=== PATIENT | male | born 2000 ===

== ENCOUNTER 2023-05-15 19:03 | Outpatient (REF) | payer MEDICAID, SELFPAY ==
[2023-05-15 20:07] LABS: Influenza A PCR NEGATIVE (Negative); Influenza B PCR NEGATIVE (Negative); Resp Syncy Virus RNA Qual PCR NEGATIVE (Negative); SARS COV2 PCR INHOUSE NEGATIVE (Negative)
== END 2023-05-15 19:04 | disposition home or self-care (01) ==
LOC: HO.HHCLNP 19:03
PROVIDERS: Visit Provider Emergency Medicine
DX: Z20.822 Contact with and (suspected) exposure to COVID-19 (principal); J30.2 Other seasonal allergic rhinitis
CPT/HCPCS: 0241U

== ENCOUNTER 2024-01-07 16:22 | Outpatient (REF) | payer MEDICAID, SELFPAY ==
[2024-01-07 17:35] LABS: MANUAL DIFF FLAG NO
[2024-01-07 17:42] LABS: Basophils Percent Auto 0.5 % (0-2); Eosinophils Absolute Auto 0.3 X10*3/uL (0.0-0.4); Eosinophils Percent Auto 3.6 % (0-4); Hematocrit 40.9 % (42.0-52.0); Hemoglobin 14.4 g/dl (14.0-18.0); Imm Gran Abs Auto 0.03 X10*3/uL (0.00-0.03); Imm Gran Pct Auto 0.4 % (0.0-0.4); Lymphocytes Absolute Auto 2.4 X10*3/uL (1.2-4.9); Lymphocytes Percent Auto 28.9 % (20-40); Mean Corpuscular HGB Conc 35.2 g/dl (31.0-36.0); Mean Corpuscular Hemoglobin 31.2 pg (27.0-33.0); Mean Corpuscular Volume 88.7 fL (80.0-98.0); Mean Platelet Volume 9.2 fL (9.4-12.4); Monocytes Absolute Auto 0.6 X10*3/uL (0.1-1.2); Monocytes Percent Auto 7.4 % (2-11); Neutrophils Absolute Auto 4.9 x10*3/uL (2.0-8.3); Neutrophils Percent Auto 59.2 % (45-73); Platelet Count 322 X10*3/uL (160-400); Red Blood Count 4.61 X10*6/uL (4.60-5.80); Red Cell Distribution Width 11.8 % (11.0-16.0); White Blood Count 8.3 X10*3/uL (4.8-10.8)
[2024-01-07 18:35] LABS: Alanine Aminotransferase 76 U/L (0-40); Albumin Level 4.8 g/dL (3.5-5.0); Alkaline Phosphatase 51 U/L (39-117); Anion Gap 14 (12-20); Aspartate Amino Transferase 44 U/L (5-37); Bilirubin Total 0.4 mg/dL (0.0-1.0); Blood Urea Nitrogen 9 mg/dL (9-16); Calcium 9.9 mg/dL (8.4-10.2); Carbon Dioxide 25 mmol/L (22-29); Chloride 106 mmol/L (96-108); Cholesterol 123 mg/dL (<200); Estimated Glomerular Filt Rate > 60; Glucose Random 86 mg/dL (60-115); HDL Cholesterol 34 mg/dL (>40); LDL Cholesterol Calculated 54 mg/dL (<100); Potassium 3.7 mmol/L (3.3-5.1); Sodium 141 mmol/L (135-145); Total Protein 7.8 g/dL (6.5-8.0); Triglycerides 176 mg/dL (<150)
[2024-01-08 09:48] LABS: HIV AB/AG Nonreactive (Nonreactive); HIV Num 1 0.03 S/CO (0.00-0.99); ~HepC Num1 0.27 S/CO (0.00-0.79); ~Hepatitis C Antibody Nonreactive (Nonreactive)
[2024-01-08 12:23] LABS: RPR Rapid Plasma Reagin NON-REACTIVE (NON-REACTIVE)
== END 2024-01-07 16:23 | disposition home or self-care (01) ==
LOC: HO.HHCL 16:22
PROVIDERS: Visit Provider General Practice
DX: E66.9 Obesity, unspecified (principal); A64 Unspecified sexually transmitted disease; Z68.38 Body mass index [BMI] 38.0-38.9, adult
CPT/HCPCS: 36415; 80053; 80061; 85025; 86592; 86803; 87389

== ENCOUNTER 2024-05-12 03:45 | Emergency (ER) | payer MEDICAID, SELFPAY ==
[2024-05-12 03:50] VITALS: BP 122/55; PULSE 70; RESP 22; TEMP 36.6; O2SAT 93; BMI 39.6
[2024-05-12] MEDS: Albuterol Sulfate 7.5 MG, Albuterol/Iprat 2.5/0.5MG 3 ML 3 ML INHALE (04:18)
[2024-05-12] MEDS: dexAMETHasone sod phosphate 10 MG/ML VIAL IVPUSH (04:22)
[2024-05-12] MEDS: 0.9 % Sodium Chloride 1,000 ML 999 ML IV (04:23)
[2024-05-12] MEDS: Magnesium Sulfate/H2O 2 GM/50 ML PIGGYBACK IV (04:32)
--- NOTE | 2024-05-12 04:39 | PC.NURSE ---
Magnesium dose and pump settings confirmed with FLAVIA Lawler.
[2024-05-12 06:20] VITALS: BP 139/63; PULSE 88; RESP 16; TEMP 37.1; O2SAT 94
[2024-05-12 06:31] VITALS: BP 139/63; PULSE 88; RESP 16; TEMP 37.1; O2SAT 94
--- NOTE | 2024-05-14 02:33 | ED.ASTHMA ---
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 no fever no chills no nasal congestion tested negative for COVID at home Related Data Previous Rx's ?Medication ?Instructions ?Recorded albuterol sulfate 90 mcg/actuation 2 puff inhalation Q6H PRN 05/12/24 aerosol inhaler shortness of breath or wheezing #8.5 grams prednisone 20 mg tablet 40 mg (2 x 20 mg) PO DAILY #10 tabs 05/12/24 Allergies Allergy/AdvReac Type Severity Reaction Status Date / Time No Known Allergies Allergy Unverified 05/12/24 03:51 Review of Systems Review of Systems: Yes all other systems are reviewed and are negative [facility] Social History Social History Use of substances other than those prescribed or required for medical reasons: No Advance Directives: No Advance Directives Information Provided: Yes Physical Exam Vital Signs: Vital Signs: Last Vital Signs Temp 98.8 F 05/12/24 06:31 Pulse 88 05/12/24 06:31 Resp 16 05/12/24 06:31 BP 139/63 05/12/24 06:31 Pulse Ox 94 05/12/24 06:31 O2 Del Method Room Air 05/12/24 06:31 BMI result Body Mass Index 39.6 Appearance: Alert. Oriented X3. No acute distress. Eyes: PERRLA, No Nystagmus ENT: Pharynx normal. Oral Mucosa moist Neck: Normal inspection. Neck supple. CVS: Normal heart rate and rhythm. Pulses normal. Respiratory: No respiratory distress. Equal air entry bilateral, bilateral wheezing Abdomen: Soft and nontender. Bowel sounds are present, no mass palpable, no CVA tenderness Skin: Skin warm and dry. Normal skin color. Normal skin turgor. Extremities: No lower extremity edema. No calf tenderness Neuro: Oriented X 3. Medications Administered Discontinued Medications Generic Name Dose Route Start Last Admin Trade Name Freq PRN Reason Stop Dose Admin Albuterol Sulfate 7.5 mg/ 0 mg 05/12/24 04:04 05/12/24 04:18 Albuterol/Ipratropium 3 ml INHALE 05/12/24 04:05 1 each ONCE ONE Administration Dexamethasone Sodium Phosphate 10 mg 05/12/24 04:05 05/12/24 04:22 Dexamethasone Sod Phosphate 10 Mg/Ml Vial IVPUSH 05/12/24 04:06 10 mg ONCE ONE Administration Magnesium Sulfate 2 gm in 50 mls @ 150 mls/hr 05/12/24 04:05 05/12/24 04:54 Magnesium Sulfate/H2o IV 05/12/24 04:24 Infused ONCE ONE Infusion Sodium Chloride 1,000 mls @ 999 mls/hr 05/12/24 04:06 05/12/24 04:23 Ns IV 05/12/24 05:06 999 mls/hr .Q1H1M ONE Administration Medical Decision Making Medical Decision Making [facility] Narrative: Patient with acute asthma improved after saturating 94% at room air discharge patient home on steroids and inhaler Differential Diagnosis Differential Diagnoses: The differential diagnosis associated with the presentation includes Asthma/bronchitis/pneumonia Discharge Plan Discharge Clinical Impression: Asthma with acute exacerbation Patient Disposition: Home, Self-Care Instructions: Asthma (ED) Additional Instructions: Use inhaler and prednisone as prescribed Stay away from cat as you might be allergic to it Prescriptions: New prednisone 20 mg tablet 40 mg PO DAILY Qty: 10 0RF albuterol sulfate 90 mcg/actuation HFA aerosol inhaler 2 puff inhalation Q6H PRN (Reason: shortness of breath or wheezing) Qty: 8.5 0RF Interventions: ED Discharge Assessment Last Done: 05/12/24 06:31 Discharge Date/Time: 05/12/24 06:36 Print Language: Cape Verdean
== END 2024-05-12 06:36 | disposition home or self-care (01) ==
PROVIDERS: Emergency Provider Internal Medicine
DX: J45.901 Unspecified asthma with (acute) exacerbation (principal); R05.9 Cough, unspecified
CPT/HCPCS: 96365; 99284; J1100; J3475

== ENCOUNTER 2024-11-24 10:09 | Emergency (ER) | payer MEDICAID, SELFPAY ==
--- NOTE | ~2024-11-24 | US_ITS ---
EXAMINATION: US LOWER EXTREMITY VEINS LIMITED FOLLOW UP RIGHT HISTORY: Right groin/ant prox thigh redness/mass. r/o abscess, r/o DVT COMPARISON: There are no prior studies for comparison. TECHNIQUE: Duplex and color Doppler sonographic examination of the deep venous system of the right lower extremity was performed. FINDINGS: The common femoral, superficial femoral, and popliteal veins are patent demonstrating normal compressibility, spontaneous flow, and augmentation. There is a normal color and spectral Doppler waveform appearance of the visualized deep venous system above the knee. The posterior tibial and peroneal veins are patent. Imaging of the right groin demonstrates a 1.4 x 0.9 x 1.5 cm heterogeneous fluid collection demonstrating increased vascularity, suggestive of an abscess. US/US venous duplex LE RT IMPRESSION: 1. Probable 1.4 x 0.9 x 1.5 cm abscess in the right groin. 2. No evidence of acute DVT in the right lower extremity. Electronically signed by: Lloyd Hanson MD 11/24/2024 03:37 PM EDT
[2024-11-24 10:32] VITALS: BP 128/40; PULSE 69; RESP 18; TEMP 36.7; O2SAT 96; BMI 37.1
[2024-11-24 11:09] LABS: MANUAL DIFF FLAG NO
[2024-11-24 11:10] LABS: Basophils Percent Auto 0.4 % (0-2); Eosinophils Absolute Auto 0.2 X10*3/uL (0.0-0.4); Eosinophils Percent Auto 2.7 % (0-4); Hematocrit 39.5 % (42.0-52.0); Hemoglobin 14.3 g/dl (14.0-18.0); Imm Gran Abs Auto 0.02 X10*3/uL (0.00-0.03); Imm Gran Pct Auto 0.2 % (0.0-0.4); Lymphocytes Absolute Auto 2.2 X10*3/uL (1.2-4.9); Lymphocytes Percent Auto 25.9 % (20-40); Mean Corpuscular HGB Conc 36.2 g/dl (31.0-36.0); Mean Corpuscular Hemoglobin 32.2 pg (27.0-33.0); Mean Platelet Volume 8.8 fL (9.4-12.4); Monocytes Absolute Auto 0.7 X10*3/uL (0.1-1.2); Monocytes Percent Auto 7.7 % (2-11); Neutrophils Absolute Auto 5.3 x10*3/uL (2.0-8.3); Neutrophils Percent Auto 63.1 % (45-73); Platelet Count 288 X10*3/uL (160-400); Red Blood Count 4.44 X10*6/uL (4.60-5.80); Red Cell Distribution Width 11.9 % (11.0-16.0); White Blood Count 8.5 X10*3/uL (4.8-10.8)
[2024-11-24 11:28] LABS: Alanine Aminotransferase 57 U/L (0-40); Albumin Level 4.5 g/dL (3.5-5.0); Alkaline Phosphatase 46 U/L (39-117); Anion Gap 10 (12-20); Aspartate Amino Transferase 33 U/L (5-37); Bilirubin Total 0.8 mg/dL (0.0-1.0); Blood Urea Nitrogen 7 mg/dL (9-16); Calcium 9.3 mg/dL (8.4-10.2); Carbon Dioxide 26 mmol/L (22-29); Chloride 107 mmol/L (96-108); Creatinine Clr Calc Pharmacy 155.8; Estimated Glomerular Filt Rate > 60; Glucose Random 108 mg/dL (60-115); Potassium 3.9 mmol/L (3.3-5.1); Sodium 139 mmol/L (135-145); Total Protein 7.3 g/dL (6.5-8.0)
--- NOTE | 2024-11-24 12:46 | ED.GENADULT ---
HPI - General Adult General Chief complaint: Skin/Abscess/Foreign Body Stated complaint: boil Time Seen by Provider: 11/24/24 15:30 Source: patient and other ( significant other) Mode of arrival: ambulatory Limitations: no limitations History of Present Illness ED Provider: Dr. Brian Ramires HPI narrative: 25-year-old male with no significant past medical history who presents emergency department for evaluation of right upper thigh redness and pain x2 days fever, chills, fatigue. He denied any recent long trips patient states that over the last 24 hours, the redness and pain is gotten worse therefore came to the emergency department for evaluation. Related Data Previous Rx's ?Medication ?Instructions ?Recorded albuterol sulfate 90 mcg/actuation 2 puff inhalation Q6H PRN 05/12/24 aerosol inhaler shortness of breath or wheezing #8.5 grams prednisone 20 mg tablet 40 mg (2 x 20 mg) PO DAILY #10 tabs 05/12/24 acetaminophen 500 mg tablet 1,000 mg (2 x 500 mg) PO Q6H PRN 11/24/24 (Tylenol Extra Strength) fever or pain #20 tabs cephalexin 500 mg capsule 500 mg PO QID 7 days #28 caps 11/24/24 doxycycline hyclate 100 mg tablet 100 mg PO Q12H 7 days #14 tabs 11/24/24 ibuprofen 400 mg tablet 400 mg PO TID PRN fever or pain 11/24/24 #30 tabs nystatin 100,000 unit/gram topical 1 appl topical BID groin 11/24/24 ointment candidiasis 2 weeks #30 grams Allergies Allergy/AdvReac Type Severity Reaction Status Date / Time No Known Allergies Allergy Verified 11/24/24 10:34 Review of Systems Review of Systems: Yes all other systems are reviewed and are negative [facility] Social History Social History Advance Directives: No Advance Directives Information Provided: No Do you have a plan to hurt others: No Plan Physical Exam ED Vital Signs: Vital Signs - 24 hr 11/24/24 10:32 11/24/24 16:53 Temperature 98.1 F 98.5 F Pulse Rate 69 70 Respiratory Rate 18 18 Blood Pressure 128/40 L 130/81 Pulse Oximetry 96 99 Oxygen Delivery Method Room Air Room Air BMI result Body Mass Index 37.1 vital signs were normal exam right groin: There is a 10 x 6 cm of erythema, the erythema is very tender to palpation with induration of the skin. He was also intertriginous erythema on both areas of the groin consistent with candidiasis infection Course Course Course Narrative: RME: 24-year-old male presents to ED for right anterior thigh mass as painful and red for couple of days. Positive for tenderness on palpation with redness and hardened mass. Not fluctuant. Was sent for ultrasound to rule out DVT and abscess. Labs already ordered Medications Administered Discontinued Medications Generic Name Dose Route Start Last Admin Trade Name Freq PRN Reason Stop Dose Admin Cephalexin HCl 500 mg 11/24/24 16:31 11/24/24 16:49 Cephalexin 500 Mg Capsule PO 11/24/24 16:32 500 mg ONCE ONE Administration Doxycycline Monohydrate 100 mg 11/24/24 16:31 11/24/24 16:48 Doxycycline Monohydrate 100 Mg Capsule PO 11/24/24 16:32 100 mg ONCE ONE Administration Ibuprofen 400 mg 11/24/24 16:31 11/24/24 16:48 Ibuprofen 400 Mg Tablet PO 11/24/24 16:32 400 mg ONCE STA Administration Lidocaine HCl 5 ml 11/24/24 15:56 11/24/24 16:49 Lidocaine Hcl 1 % Mpf 5 Ml Vial INFILTRATI 11/24/24 15:57 5 ml ONCE ONE Administration Lidocaine HCl 5 ml 11/24/24 15:56 11/24/24 16:49 Lidocaine Hcl 1 % Mpf 5 Ml Vial INFILTRATI 11/24/24 15:57 5 ml ONCE STA Administration Procedures Procedure Narrative Procedure Narrative: Right groin abscess incision, drainage and packing procedure: I did discuss the incision and drainage procedure the patient and he did give me informed verbal consent to proceed.Using point of care ultrasound, the fluid collection was located and marked with a skin pen. The area was prepped with Betadine , anesthetized with 5 cc of 1% lidocaine. Using an 18 gauge needle and a 10 cc syringe, I was able to find the abscess cavity and aspirate 3 cc of purulent material. This was sent for culture. Then using an 11 blade scalpel, I make an incision over the marked area and no further purulent material was expressed. I did explore the abscess cavity using hemostats to break up any adhesions. The abscess cavity was packed with his gauze. The patient tolerated the procedure well. Medical Decision Making Medical Decision Making [facility] Narrative: 24-year-old male with no significant past medical history presents emergency department for evaluation of 2-3 days of right groin pain with erythema and tenderness. He had no concerning systemic symptoms. Differential diagnosis: Includes but is not limited to Cellulitis, abscess, intertriginous candidiasis Course: 16:50 my independent interpretation patient's laboratory evaluation is as follows: CBC was normal. CMP was unremarkable except for an elevated ALT of 57. The patient had a right lower extremity duplex ultrasound which she had no DVT. Ultrasound of the groin area did reveal a collection of fluid in the groin area consistent with an abscess. Using point of care ultrasound, the fluid collection was located and marked with a skin pen. The area was prepped with Betadine, Anesthetized with 1% lidocaine and.using an 18 gauge needle with a 10 cc syringe, I was able to find the abscess cavity and aspirated 3 cc of purulent material. This was sent for culture. Using a 11 blade scalpel, I make an incision over the marked area and no further purulent material was expressed. I did explore the abscess cavity using hemostats to break up any adhesions. The abscess cavity was packed with his gauze. The patient was prescription and doxycycline 100 mg b.i.d. for 7 days and Keflex 500 mg 4 times a day for 7 days. He was given his 1st dose of these medications in the emergency department . Patient was also prescribed Tylenol and ibuprofen for pain. The patient does have intertriginous candidiasis infection of the groin area and I did discuss this with him. He was prescribed nystatin ointment b.i.d. for 2 weeks. Admission/Observation Consideration of admission/observation: Escalation of care including admission/observation considered ( yes) Lab Data [facility] Lab Attestation statement: I reviewed the patient's lab results. 11/24/24 11:02 11/24/24 11:02 Labs: Lab Results 11/24/24 Range/Units 11:02 WBC 8.5 (4.8-10.8) X10*3/uL RBC 4.44 L (4.60-5.80) X10*6/uL Hgb 14.3 (14.0-18.0) g/dl Hct 39.5 L (42.0-52.0) % MCV 89.0 (80.0-98.0) fL MCH 32.2 (27.0-33.0) pg MCHC 36.2 H (31.0-36.0) g/dl RDW 11.9 (11.0-16.0) % Plt Count 288 (160-400) X10*3/uL MPV 8.8 L (9.4-12.4) fL Immature Gran % (Auto) 0.2 (0.0-0.4) % Neut % (Auto) 63.1 (45-73) % Lymph % (Auto) 25.9 (20-40) % [place] % (Auto) 7.7 (2-11) % Eos % (Auto) 2.7 (0-4) % Baso % (Auto) 0.4 (0-2) % Lymph # (Auto) 2.2 (1.2-4.9) X10*3/uL [place] # (Auto) 0.7 (0.1-1.2) X10*3/uL Eos # (Auto) 0.2 (0.0-0.4) X10*3/uL Baso # (Auto) 0.0 (0.0-0.2) X10*3/uL Abs Immat Gran (auto) 0.02 (0.00-0.03) X10*3/uL Absolute Neuts (auto) 5.3 (2.0-8.3) x10*3/uL Absolute Nucleated RBC 0.000 (0.0-0.012) X10*3/uL Nucleated RBC % (auto) 0.0 (0.0-0.2) /100WBC Sodium 139 (135-145) mmol/L Potassium 3.9 (3.3-5.1) mmol/L Chloride 107 (96-108) mmol/L Carbon Dioxide 26 (22-29) mmol/L Anion Gap 10 L (12-20) BUN 7 L (9-16) mg/dL Creatinine 0.82 (0.5-1.4) mg/dL Estim Creat Clear Calc 155.8 Estimated GFR > 60 Random Glucose 108 (60-115) mg/dL Calcium 9.3 D (8.4-10.2) mg/dL Total Bilirubin 0.8 (0.0-1.0) mg/dL AST 33 (5-37) U/L ALT 57 H (0-40) U/L Alkaline Phosphatase 46 (39-117) U/L Total Protein 7.3 (6.5-8.0) g/dL Albumin 4.5 (3.5-5.0) g/dL Radiology Impression Discussion of test interpretation with radiology: I have reviewed the radiologist's reading. Radiologist Impression: EXAMINATION: US LOWER EXTREMITY VEINS LIMITED FOLLOW UP RIGHT HISTORY: Right groin/ant prox thigh redness/mass. r/o abscess, r/o DVT COMPARISON: There are no prior studies for comparison. TECHNIQUE: Duplex and color Doppler sonographic examination of the deep venous system of the right lower extremity was performed. FINDINGS: The common femoral, superficial femoral, and popliteal veins are patent demonstrating normal compressibility, spontaneous flow, and augmentation. There is a normal color and spectral Doppler waveform appearance of the visualized deep venous system above the knee. The posterior tibial and peroneal veins are patent. Imaging of the right groin demonstrates a 1.4 x 0.9 x 1.5 cm heterogeneous fluid collection demonstrating increased vascularity, suggestive of an abscess. IMPRESSION: 1. Probable 1.4 x 0.9 x 1.5 cm abscess in the right groin. 2. No evidence of acute DVT in the right lower extremity. Electronically signed by: Lloyd Hanson MD 11/24/2024 03:37 PM EDT Independent Historian Clinical information obtained from an independent historian. History obtained from or confirmed by: Other ( significant other) Prescription Management I considered prescription management with: Pain Medication, Antibiotic and Other ( anti fungal ointment: Nystatin) Discharge Plan Discharge Clinical Impression: Abscess of right groin, Cellulitis of groin, right, Intertriginous candidiasis Patient Disposition: Home, Self-Care Instructions: Cellulitis (ED), Skin Yeast Infection (ED) Additional Instructions: Abscess Discharge Instructions You were treated today for an abscess( collection of pus under the skin). The abscess was cut, the pus was drained out and the abscess and the wound was packed with a piece of gauze packing. Change the outside gauze daily or if it gets soaked through with pus or blood. Try not to pull out the gauze packing when you remove the outside gauze. The gauze packing needs to stay in place for 3 days to help the pus drain out of the abscess. If the gauze falls out before 3 days and it DOES NOT need to be replaced. You need to remove the gauze in 3 days by pulling on the end until all of the gauze comes out. Take Keflex 500mg pills, one pill 4 times a day for 7 days. Take doxycycline 100 mg pills, 1 pill every 12 hours for 7 days. Make sure you complete the full course of these antibiotics. Take ibuprofen 400 mg pills, 1 pills every 6 hours (3 times a day) for 4 days then as needed for pain. Also take Tylenol (acetaminophen) 500 mg pills, 2 pills every 6 hours as needed for pain. Apply warm compresses or a heating pad on low for 15 minutes 4-6 times a day for 4 days. This increases the blood flow to the area and helps the healing process. Also try to keep your leg elevated this will help the healing process. Watch for signs of worsening infection which include fever, increased pain, increased redness or increased swelling, red lines traveling away from the wound. IF you think the infection is getting worse or if you develop any new symptoms that are concerning you, then return to the Emergency Department or follow up with your doctor for a recheck. Please follow up with your doctor in 2 days for a recheck. Please see the return to work note. Prescriptions: New acetaminophen [Tylenol Extra Strength] 500 mg tablet 1,000 mg PO Q6H PRN (Reason: fever or pain) Qty: 20 0RF cephalexin 500 mg capsule 500 mg PO QID 7 Days Qty: 28 0RF ibuprofen 400 mg tablet 400 mg PO TID PRN (Reason: fever or pain) Qty: 30 0RF doxycycline hyclate 100 mg tablet 100 mg PO Q12H 7 Days Qty: 14 0RF nystatin 100,000 unit/gram ointment 1 appl topical BID 14 Days Qty: 30 0RF Rx Instructions: apply to skin folds of groin bilaterally No Action prednisone 20 mg tablet 40 mg PO DAILY Qty: 10 0RF albuterol sulfate 90 mcg/actuation HFA aerosol inhaler 2 puff inhalation Q6H PRN (Reason: shortness of breath or wheezing) Qty: 8.5 0RF Stand Alone Forms: Work/School Release Interventions: ED Discharge Assessment Last Done: 11/24/24 16:53 Discharge Date/Time: 11/24/24 16:53 Print Language: Hungarian
[2024-11-24] MEDS: Ibuprofen 400 MG TABLET PO (16:48)
[2024-11-24] MEDS: Doxycycline Monohydrate 100 MG CAPSULE PO (16:48)
[2024-11-24] MEDS: cephALEXin 500 MG CAPSULE PO (16:49)
[2024-11-24] MEDS: Lidocaine HCl 1 % MPF 5 ML VIAL INFILTRATI ×2 (16:49)
[2024-11-24 16:53] VITALS: BP 130/81; PULSE 70; RESP 18; TEMP 36.9; O2SAT 99
--- OUTSIDE RECORDS SUMMARY | 2024-11-24 18:24 | XMS_ITS | Clinical Summary ---
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 10 mL 3 Active fluticasone (Flonase Allergy Relief) 50 MCG/ACT nasal spray Administer 1 spray into each nostril in the morning. Shake gently. Before first use, prime pump. After use, clean tip and replace cap. 16 g 3 3 Active fexofenadine (Celestina) 180 MG tablet TAKE 1 TABLET BY MOUTH EVERY MORNING 90 tablet 3 3 Active amoxicillin (Amoxil) 500 MG capsule TOME ANEUDY C PSULA OBINNA VECES AL D A UNTIL GONE 4 Active ibuprofen 400 MG tablet TAKE 1 TO 2 TABLETS BY MOUTH EVERY 6 TO 8 HOURS NEEDED FOR PAIN 4 Active Active Problems Problem Noted Date Diagnosed Date Hematuria 01/11/2024 Assessment & Plan (01/11/2024 3:09 PM EDT): Single episode of hematuria, urine is clear now of blood, LE, or nitrites - Diff Dx passed stone, infection, STI, mass/tumor Will have pt test for STIs and increase fluid intake -- follow-up when results are available Obesity 03/18/2015 Attention deficit hyperactivity disorder 013 Encounters Date Type Department Care Team Description 10/31/2024 Population Health Risk Score [facility] ([facility]) [address] [address] Provider, Population Health Generic from Last 3 Months Immunizations Name Administration Dates Next Due DTaP 05/18/2000, 0,1999,04/13 HPV, Quadrivalent 12/03/2012,10/24/2011,09/29/19 11 Hep A, ped/adol, 2 dose 12/03/2012,09/29/2010 Hib (HbOC) 05/18/2000, 0,1999,04/13 IPV 03/25/2003, 0,1999,04/13 Influenza injectable quadriv alent preservative free 07/02/2015,06/25/2014 Influenza, Split (incl. gerri fied surface antigen) 05/27/2013 MMR 03/25/2003,02/28/2000 Meningococcal MCV4P [id number] 09/29/2010 Td (adult), 5 Lf tetanus tox oid, preservative free, adsorbed 09/28/2009 Tdap 12/08/2014 Varicella 09/27/2009,06/11/2000 Social History Tobacco Use Types Packs/Day Years Used Date Smoking Tobacco: Never Smokeless Tobacco: Never Tobacco Cessation:Counseling Given: Not Answered Sex and Gender Information Value Date Recorded Sex Assigned at Male 06/19/2022 10:21 AM EDT Legal Sex Male 10:21 AM EDT Gender Identity Male 06/19/2022 10:21 AM EDT Sexual Orientation Straight 06/19/2022 10 :21 AM EDT Last Filed Vital Signs Vital Sign Reading Time Taken Comments Blood Pressure 145/84 01/07/2024 3:54 PM EDT Pulse 90 01/07/2024 3:54 PM EDT Temperature 36.3 ??C (97.3 ??F) 01/07/2024 3:54 PM ED T Respiratory Rate 20 01/07/2024 3:54 PM EDT Oxygen Saturation 99% 01/07/2024 3:54 PM EDT Inhaled Oxygen Concentration - - Weight 117 kg (258 lb 12.8 oz) 01/07/2024 3:54 P M EDT Height 174 cm (5' 8.5 ) 01/07/2024 3:54 PM EDT Body Mass Index 38.78 01/07/2024 3:54 PM EDT Plan of Treatment Health Maintenance Due Date Last Done Comments Depression Screening 1999 SDOH Screening 1999 Alcohol/Substance Use Screening 2011 Family Planning (PISQ) 2014 COVID-19 Vaccine ( season) 2024 Influenza Vaccine (#1) 2024 5, 06/25/2014, 05/27/2013 DTaP/Tdap/Td Vaccines (7 - Td or Tdap) 12/08/2024 12/08/2014, 09/28/2009, 05/18/2000, Additional history exists Tobacco Screening 01/06/2025 01/07/2024 Lipid Panel 01/06/2029 01/07/2024 Zoster Vaccines (1 of 2) 2049 RSV Patients and Patients Aged 60 years or older (1 - 1-dose 75+ series) 2074 Hepatitis B Vaccines Completed 1999, 1999, 1999 HIB Vaccines Completed 05/18/2000, 08/20, 1999, Additional history exists IPV Vaccines Completed 03/25/2003, 08/20, 1999, Additional history exists Meningococcal Vaccine Aged Out 09/29/2010 No vin robert eligible based on patient's age to complete this topic HPV Vaccines Completed 12/03/2012, 03/0 01/2012, 09/29/2010 Hepatitis A Vaccines Completed 12/03/2012, 09/29/19 11 HIV Screening Completed 01/07/2024 Hepatitis C Screening Completed 01/07/2024 Pneumococcal Vaccine: Pediatrics (0 to 5 Years) and At-Risk Patients (6 to 49) Years) Aged Out No longer eligible based on patient's age to complete this topic RSV under 20 months Aged Out No longe r eligible based on patient's age to complete this topic Rotavirus Vaccines Aged Out No longer eligible based on patient's age to complete this topic Procedures Procedure Name Priority Date/Time Associated Diagnosis Comments HEPATITIS C AB W/REFL TO HCV RNA, QN, PCR Routine 01/07/2024 4:24 PM EDT Sexually transmitted disease HIV 1/2 ANTIGEN/ANTIBODY, FOURTH GENERATION W/RFL Routine 01/07/2024 4:24 PM EDT Sexually transmitted disease LIPID PANEL, STANDARD Routine 01/07/2024 4:24 PM EDT Class 2 obesity with body mass index (BMI) of 38.0 to 38.9 in adult, unspecified obesity type, unspecified whether serious comorbidity present from Last 3 Months or Most Recently Relevant to Health Maintenance Results * Hepatitis C Antibody with Reflex to HCV, RNA, Quantitative, Real-Time PCR (01/07/2024 4:24 PM EDT) [facility] Hepatitis C Antibody Nonreactive Nonreactive [facility] Comment:Antibodies to HCV no t detected; does not exclude early acuteHCV infection. Blood Venous blood specimen / Unknown 01/07/2024 4:24 PM EDT 01/07/2024 5:33 PM EDT us Nuris Kyle MD LAB BLOOD ORDERABLES Final Res ult [facility] [address] [place] [phone] * HIV-1/2 Antigen and Antibodies, Fourth Generation, with Reflexes (01/07/2024 4:24 PM EDT) [facility] HIV AB/AG Nonreactive Nonreactive [facility] Comment:HIV-1 p24 Ag and/or HIV-1/HIV-2 Ab not detected.A test result that is nonreactive does not exclude thepossibility of exposure to or infection with HIV-1 and/orHIV-2. Nonreactive results in this assay for individualswith prior exposure to HIV-1 and/or HIV-2 may be due toantigen and antibody levels that are below the limit ofdetection of this assay.[employer] HIV Ag/Ab Combo assay result andsupplemental assay results should be interpreted inconjunction with the patient's clinical presentation,history and other laboratory results. If the results areinconsistent with clinical evidence, additional testing issuggested to confirm the result. Blood Venous blood specimen / Unknown 01/07/2024 4:24 PM EDT 01/07/2024 5:33 PM EDT Nuris Kyle MD LAB BLOOD ORDERABLES Final Res ult Performing Organization Address [facility] Co de Phone Number [facility] [address] [place] [phone] * (ABNORMAL) Lipid Panel, Standard (01/07/2024 4:24 PM EDT) Triglycerides 176(H) <150 mg/dL [facility] Comment:Desirable Triglyceri de: less than 150 mg/dLBorderline High Triglyceride 150-199 mg/dLHigh Triglyceride: 200-499 mg/dLVery High Triglyceride: greater than or equal to 5OO mg/dL Cholesterol 123 <200 mg/dL [facility] Comment:Desirable Cholestero l: less than 200 mg/dLBorderline High Cholesterol: 200-239 mg/dLHigh Cholesterol: greater than 239 mg/dL LDL Cholesterol Calculated 54 <100 mg/dL [facility] Comment:Desirable LDL: less than 100 mg/dLNear Optimal/Above Optimal LDL: 110- 129 mg/dLBorderline High LDL: 130-159 mg/dLHigh LDL: 160-189 mg/dLVery High LDL: greater than or equal to 190 mg/dL HDL Cholesterol 34(L) >40 mg/dL [facility] Comment:Desirable HDL: great er than 40 mg/dL Note: This HDL assay may give artificially low results in patients with liver disease. Blood Venous blood specimen / Unknown 01/07/2024 4:24 PM EDT 01/07/2024 5:33 PM EDT us Nuris Kyle MD LAB BLOOD ORDERABLES Final Res ult Performing Organization Address [facility]/ZIP Co de Phone Number [facility] [address] [place] [phone] from Last 3 Months or Most Recently Relevant to Health Maintenance Insurance [facility] Care Teams Supervisor [employer] Relationship Specialty Start Date End Date Nuris Kyle MD [address] [place] [phone] PCP - General Family Medicine 03/29/22
--- OUTSIDE RECORDS SUMMARY | 2024-11-24 18:24 | XMS_ITS | Data Portability ---
Author Organization [facility] [address] Address [address] [place] [address] Assessment No assessment recorded. Plan of Treatment Reminders Order Date Submit Date Provider Last Modified By Organization Details Last Modified Time Details Appointments None record ed. Lab None record ed. Referral None record ed. Procedures None record ed. Surgeries None record ed. Imaging None record ed. Medication Orders None record ed. Patient TargetsNo targets recorded. Patient InstructionsNo instructions recorded. Reason for Referral None Reported. Procedures Surgical History Date Name Laterality Status Provider Name and Address Organization Details Recorded Time OC-UDS Send Out Template NON DOT completed [facility] 04/09/2024 10:29:25 Imaging Results None recorded. Procedure Notes None recorded. Medical Equipment None Reported. Vitals None Recorded Social History None recorded. Functional Status None recorded. Mental Status None recorded. Family History Nothing Reported. Medical History No medical history recorded. Past Encounters Encounter ID Performer Location Encounter Start Date Encounter Closed Date Diagnosis/Indication Diagnosis SNOMED-CT Code Diagnosis ICD10 Code Diagnosis Note [id number] [address] [address] [place] [address] 12/17/2020 09:54:32 12/17/2020 10:49:42 [id number] [facility] [address] [facility] [address] [place] [address] 04/09/2024 09:43:22 04/09/2024 10:30:07 History and physical examination, occupation [id number] Z02.1 Health Concerns Section Related Observation LastModified by Organization Detai ls LastModified Time None Recorded Concern Status LastModified by Organization Details LastModified Time None Recorded Advance Directives Directive None Recorded Payers Encounter Date Sequence Insurance Name Policy Number Policy Hutton Covered Member ID Hutton Member ID Guarantor Name 12/17/2020 1 [place]: [facility] [id number] [facility] 04/09/2024 OC-ESCREEN [employer] [facility] (Fadv Ec [id number] [facility]
== END 2024-11-24 16:53 | disposition home or self-care (01) ==
PROVIDERS: Emergency Provider Emergency Medicine Emergency Medical Services
DX: L02.214 Cutaneous abscess of groin (principal); L03.314 Cellulitis of groin; B37.2 Candidiasis of skin and nail; R60.0 Localized edema; Z79.899 Other long term (current) drug therapy
CPT/HCPCS: 36415; 80053; 85025; 87070; 87147; 87205; 93971; 99283; 99284; J2003

== ENCOUNTER → 2024-11-24 12:44 | Outpatient (BNV) | payer MEDICAID, SELFPAY | PROVIDERS: Emergency Provider Emergency Medicine Emergency Medical Services; Visit Provider Radiology Diagnostic Radiology | DX: R19.09 Other intra-abdominal and pelvic swelling, mass and lump (principal) | CPT/HCPCS: 93971 ==